=== PATIENT | female | born 1995 | race Native Hawaiian/Other Pacific Islander ===

== ENCOUNTER 2016-04-14 06:23 | Emergency (ER) | payer OTHER ==
[~2016-04-14 06:23] MED LIST: ACET50TA PO; COLA100C PO; IBUP-1114 PO; PRENTAB55 PO
[2016-04-14] MEDS ORDERED: ONDANSETRON 4MG/2ML VIAL (J2405) As Ordered ONE (06:58)
[2016-04-14 07:12] LABS: BASO # 0.2 K/mm3 (0.0-0.2); EOS # 0.1 K/mm3 (0.0-0.50); EOS % 0.7 % (0.0-3.0); LARGE UNSTAINED CELL # 0.1 K/mm3 (0.0-0.4); LARGE UNSTAINED CELL % 0.9 % (0.0-4.0); LYMPH % 13.2 % (24.0-44.0); MEAN CORPUSCULAR HEMOGLOBIN 27.4 pg (27.0-33.0); MEAN CORPUSCULAR HGB CONC 32.3 g/dl (32.0-36.5); MONO # 0.9 K/mm3 (0.0-0.8); MONO % 5.9 % (0.0-5.0); NEUTROPHILS # 11.3 K/mm3 (1.8-7.7); NEUTROPHILS % 78.3 % (36.0-66.0); PLATELET COUNT, AUTOMATED 323 k/mm3 (150-450); RED CELL DISTRIBUTION WIDTH 14.9 % (11.5-14.5); WHITE BLOOD COUNT 14.4 K/mm3 (4.0-10.0)
[2016-04-14 07:15] LABS: CONTROL LINE UCG INT CTR LINE PRESENT
[2016-04-14 07:37] LABS: ALBUMIN 3.8 GM/DL (3.2-5.2); ALBUMIN/GLOBULIN RATIO 1.09 (1.00-1.93); ALKALINE PHOSPHATASE 92 U/L (45-117); ALT/SGPT 57 U/L (12-78); ANION GAP 10 MEQ/L (8-16); AST/SGOT 41 U/L (15-37); BILIRUBIN,DIRECT < 0.1 MG/DL (0.0-0.2); BILIRUBIN,TOTAL 0.4 MG/DL (0.2-1.0); BLOOD UREA NITROGEN 13 MG/DL (7-18); CALCIUM LEVEL 8.7 MG/DL (8.5-10.1); CARBON DIOXIDE LEVEL 25 MEQ/L (21-32); CHLORIDE LEVEL 106 MEQ/L (98-107); CREATININE FOR GFR 0.71 MG/DL (0.55-1.02); GLUCOSE, FASTING 97 MG/DL (70-105); POTASSIUM SERUM 3.9 MEQ/L (3.5-5.1); SODIUM LEVEL 141 MEQ/L (136-145); TOTAL PROTEIN 7.3 GM/DL (6.4-8.2)
--- NOTE | 2016-04-14 08:39 | REP ---
Right upper quadrant sonography: History: Biliary colic. Comparison study: No comparison study. Findings: Scanning through the right upper quadrant of the abdomen demonstrates a normal sized, thin-walled gallbladder without evidence of stone or polyp. Common bile duct is normal measuring 0.3 cm in greatest diameter. No focal liver lesion is seen. Liver size is normal. No pancreatic abnormality is observed. The pancreas is partially obscured by abdominal gas. No right renal abnormality is seen. There is no evidence of ascites. The right kidney measures 10.3 x 5.5 x 4.1 cm. Impression: Negative right upper quadrant sonography. Signed by Jatinder Harding MD 04/14/2016 08:31 A
--- NOTE | 2016-04-14 09:22 | EDDOCDS ---
Physician Documentation [facility] Name: Paulette Mendoza Age: 20 yrs Sex: Female : 1995 Arrival Date: 04/14/2016 Time: 06:23 Bed 5 Private MD: Disposition: 04/14 09:03 Critical Care: Critical care not applicable. pc Disposition: 04/14/16 09:04 Discharged to Home/Self Care. Impression: Other viral enteritis, Nausea and vomiting. - Condition is Stable. - Discharge Instructions: Nausea and Vomiting, Viral Gastroenteritis. - Prescriptions for ZOFRAN ODT 4 mg - dissolve 1 tablet by ORAL route 4 times per day As needed do not chew, do not swallow whole; 10 tablet. - Medication Reconciliation, Local Pharmacy Hours form. - Follow up: Bobbi Masterson, [facility]; When: Call to arrange an appointment; Reason: Continuance of care. - Problem is new. - Symptoms have improved. HPI: 07:54 This 20 yrs old Unknown Female presents to ER via Walkin/Carried/Asstd with complaints pc of Abdominal Pain, Vomiting. 07:54 The history is obtained from the patient. The patient presents with abdominal pain, in pc the epigastric area. The symptoms began suddenly last night. She awoke with sudden nausea and vomiting at midnight. She is no longer vomiting and her nausea has nearly resolved. She has mild epigastric discomfort. She has not had any diarrhea, fevers or chills, Resp or symptoms. Her LNMP was 4 weeks CARE PROGRAM RESIDENT, she is on OCPs. At its worst, the symptoms were a 10 out of 10. In the emergency department, the symptoms are a 2 out of 10. The pain is described as "pain". The is primarily located epigastric area. It does not radiate. The patient has not experienced similar symptoms in the past. The patient has not recently seen a physician. Historical: - Allergies: No known drug Allergies; - Home Meds: 1. control daily 2. Vitamin Oral tab 1 tab once daily - PMHx: none; - PSHx: Appendectomy; - The history from nurses notes was reviewed: and I agree with what is documented. - Social history: Smoking status: Patient states was never smoker of tobacco. No barriers to communication noted, The patient speaks fluent Telugu. - Family history: No immediate family members are acutely ill. - : The pt / caregiver states he / she is not on anticoagulants. Home medication list is obtained from the patient. - Hospitalizations: : No recent hospitalization is reported. - Exposure Risk Screening:: None identified. - Immunization history:: All immunizations up-to-date. - Social history:: the patient is a non-smoker, the patient does not drink alcohol. 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 The constitutional, cardiovascular, pc respiratory and neurological components are also addressed in the HPI. Exam: 07:54 General Appearance: alert, no acute distress. pc 07:54 ENT: ear, nose and throat normal, pharynx normal. 07:54 Neck: The exam reveals no acute abnormalities. ROM is normal and painless. No nuchal rigidity is noted.. 07:54 Respiratory: no respiratory distress, normal breath sounds. 07:54 Cardiovascular: regular pulse rate, regular heart rhythm, normal heart sounds, equal and full pulses bilaterally. 07:54 Abdomen: soft, no organomegaly, normal bowel sounds, no masses appreciated, no hernias palpated with/without gravity or Valsalva mild tenderness in the epigastric area and right upper quadrant, without rebound, voluntary guarding is not appreciated, involuntary guarding is elicited in the right upper quadrant. 07:54 Back: normal inspection. 07:54 Skin: skin color is normal, warm, dry. 07:54 Extremities: The extremities have a grossly normal appearance, are non-tender, without acute ROM abnormalities. 07:54 Neuro: oriented x 3, cranial nerves normal as tested, no motor deficits, no sensory deficits. 07:54 Psych: mood is normal. Vital Signs: 06:32 Weight 67.13 kg / 148 lbs; Height 4 ft. 11 in. (149.86 cm); Pain 5/10; mlc 06:32 BP 110 / 71; Pulse 112; Resp 18; Temp 96.8(O); Pulse Ox 96% on R/A; mlc 07:50 BP 97 / 69 (auto/); ead 07:52 Pulse 82 MON; Resp 16; Pulse Ox 98% ; ead 08:20 BP 102 / 68 (auto/); ead 08:21 Pulse 82 MON; Pulse Ox 96% on R/A; ead 08:35 BP 107 / 67 (auto/); ead 08:35 Pulse 84 MON; Pulse Ox 99% ; ead 08:50 BP 103 / 71 (auto/); ead 08:50 Pulse 84 MON; Pulse Ox 98% ; ead 09:19 BP 104 / 66; Pulse 63; Resp 16; Temp 96.5(T); Pulse Ox 99% on R/A; Pain 0/10; ead 06:32 Body Mass Index 29.89 (67.13 kg, 149.86 cm) mlc MDM: 06:38 IV Saline Lock ordered. fg 06:38 Undress patient appropriately for examination ordered. fg 06:38 Ondansetron 4 mg IVP once ordered. fg 06:39 Basic Metabolic Profile Ordered. EDMS 06:39 CBC with Diff Ordered. EDMS 06:39 Lipase Ordered. EDMS 06:39 Liver Profile Ordered. EDMS 06:39 Urinalysis Ordered. EDMS 06:39 Urine Test-In Lab Ordered. EDMS 06:39 Urine Culture Ordered. EDMS 06:39 NOTHING BY MOUTH+DIET ordered. EDMS 07:21 CBC with Diff Reviewed. pc 07:21 Urinalysis Reviewed. pc 07:21 Urine Test-In Lab Reviewed. pc 07:40 Liver Profile Reviewed. pc 07:40 Basic Metabolic Profile Reviewed. pc 07:40 Lipase Reviewed. pc 07:43 Gallbladder US Ordered. EDMS 07:54 Differential diagnosis: cholecystitis, Gastroenteritis. Plan: labs, imaging, meds. pc 09:03 Data reviewed: old medical records, vital signs, nurses notes, lab test results, all radiology studies and available results. Test interpretation: LAB - all labs as ordered have been reviewed, interpreted and considered in the overall management of the clinical presentation; Ultrasound - interpreted by Radiologist, Gallbladder Normal. The patient has been re-examined and re-evaluated. The patient's symptoms have markedly improved after treatment. Disposition: The historical points, examination findings, and any diagnostic results supporting the provided diagnosis, were discussed with the patient or legal guardian. The need for outpatient follow up with the provider listed on their discharge instructions was discussed. They were encouraged to return to [facility], or the nearest ED, if symptoms worsen/persist, or for any other questions/concerns. Administered Medications: 07:01 Drug: Ondansetron 4 mg [ondansetron HCl 2 mg/mL intravenous solution (2 mL)] Route: ko2 IVP; Site: left hand; Signatures: Dispatcher [employer] Donovan Theodore MD MD pc Dunaway, EmilyRN RN Krista Deal RN RN mlc Gill, Frances, MD MD fg Ogden, Kari RN ko2 PAUL
--- NOTE | 2016-04-14 09:22 | EDDOCDS ---
Nurse's Notes [facility] Name: Paulette Mendoza Age: 20 yrs Sex: Female : 1995 Arrival Date: 04/14/2016 Time: 06:23 Bed 5 Private MD: Diagnosis: Other viral enteritis;Nausea and vomiting Presentation: 04/14 06:30 Presenting complaint: Patient states: pt states she woke up at approx 04:00 and had mlc epigastric pain. pt reports vomiting "yellow stuff". pt states she then "chugged a bunch of water" and then vomited again. Risk factors: the patient reports no vaginal bleeding. Adult Sepsis Screening: The patient does not have new or worsening altered mentation. Patient's respiratory rate is less than 22. Systolic blood pressure is greater than 100. Patient has a qSOFA score of 0- Negative Sepsis Screen. Suicide/Homicide risk assessment- the patient denies having any suicidal and/or homicidal ideations and does not present with any other emotional, behavioral or mental health complaints. Status: The patient is a dependent. Transition of care: patient was not received from another setting of care. 06:30 Acuity: MEAGAN Level 3 mlc 06:30 Method Of Arrival: Walkin/Carried/Asstd mlc Triage Assessment: 06:32 General: Appears in no apparent distress, comfortable, Behavior is cooperative. Pain: mlc Location: epigastric area Pain currently is 5 out of 10 on a pain scale. Pt Declines HIV testing. The patient is triaged at the bedside. See Assessment in Nurses Notes section of ED record. Neurological: Level of Consciousness is awake, alert, Oriented to person, place, time. Respiratory: Airway is patent Respiratory effort is even, unlabored, Respiratory pattern is regular. GI: Reports nausea, vomiting. Derm: Skin is pink, warm & dry. 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 control daily 2. Vitamin Oral tab 1 tab once daily - PMHx: none; - PSHx: Appendectomy; - The history from nurses notes was reviewed: and I agree with what is documented. - Social history: Smoking status: Patient states was never smoker of tobacco. No barriers to communication noted, The patient speaks fluent Urdu. - Family history: No immediate family members are acutely ill. - : The pt / caregiver states he / she is not on anticoagulants. Home medication list is obtained from the patient. - Hospitalizations: : No recent hospitalization is reported. - Exposure Risk Screening:: None identified. - Immunization history:: All immunizations up-to-date. - Social history:: the patient is a non-smoker, the patient does not drink alcohol. Screenin:36 Screening information is obtained from the patient. Fall risk: No risks identified. mlc Assistance ADL's: requires no assistance with activities of daily living. Abuse/DV Screen: The patient / caregiver reports he/she is: not in a situation that causes fear, pain or injury. Nutritional screening: No deficits noted. Advance Directives: Currently, there is no health care proxy. home support is adequate. Assessment: 06:40 General: Appears in no apparent distress, comfortable, Behavior is cooperative. ko2 Neurological: Level of Consciousness is awake, alert. Respiratory: Airway is patent Respiratory effort is even, unlabored. GI: Abdomen is non- distended Bowel sounds present X 4 quads. Abd is soft and non tender X 4 quads. Derm: Skin is pink, warm & dry. 07:45 General: Appears in no apparent distress, comfortable, Behavior is cooperative. ead Neurological: Level of Consciousness is awake, alert, Oriented to person, place, time. Respiratory: Airway is patent Respiratory effort is even, unlabored. GI: Denies nausea, vomiting, pain. Derm: Skin is pink, warm & dry. 09:03 General: Appears in no apparent distress, comfortable, Behavior is appropriate for age, ead cooperative. Pain: Denies pain. Neurological: No deficits noted. GI: Denies nausea, vomiting. Derm: Skin is pink, warm & dry. Vital Signs: 06:32 Weight 67.13 kg; Height 4 ft. 11 in. (149.86 cm); Pain 5/10; mlc 06:32 BP 110 / 71; Pulse 112; Resp 18; Temp 96.8(O); Pulse Ox 96% on R/A; mlc 07:50 BP 97 / 69 (auto/); ead 07:52 Pulse 82 MON; Resp 16; Pulse Ox 98% ; ead 08:20 BP 102 / 68 (auto/); ead 08:21 Pulse 82 MON; Pulse Ox 96% on R/A; ead 08:35 BP 107 / 67 (auto/); ead 08:35 Pulse 84 MON; Pulse Ox 99% ; ead 08:50 BP 103 / 71 (auto/); ead 08:50 Pulse 84 MON; Pulse Ox 98% ; ead 09:19 BP 104 / 66; Pulse 63; Resp 16; Temp 96.5(T); Pulse Ox 99% on R/A; Pain 0/10; ead 06:32 Body Mass Index 29.89 (67.13 kg, 149.86 cm) [facility]als: 06:32 Log In Time: April 14, 2016 at 06:24. [facility] Course: 06:24 Patient visited by Blossom Guerra Reg. hs2 06:24 Patient moved to Waiting hs2 06:31 Triage Initiated mlc 06:37 Dixie Reynolds,RN is Primary Nurse. mlc 06:37 Patient moved to 5 mlc 07:01 Basic Metabolic Profile Sent. ko2 07:01 CBC with Diff Sent. ko2 07:01 Lipase Sent. ko2 07:01 Liver Profile Sent. ko2 07:01 Urinalysis Sent. ko2 07:01 Urine Test-In Lab Sent. ko2 07:01 Urine Culture Sent. ko2 07:04 Inserted saline lock: 20 gauge in left hand and blood collected. The patient tolerated ko2 the procedure well. 07:06 Patient visited by Dixie Reynolds,LUI. ko2 07:08 Donovan Mendez MD is Attending Physician. pc 07:08 The patient / caregiver is instructed regarding the plan of care and ED course. ko2 07:21 Patient visited by Donovan Mendez MD. pc 07:54 Vanda Ortiz,RN is Primary Nurse. ead 07:57 Patient visited by Vanda Ortiz,LUI. ead 07:59 Patient moved to Ultrasound eg2 08:15 Patient moved to 5 eg2 09:01 Gallbladder US Returned. EDMS 09:03 Patient visited by Vanda Ortiz,LUI. ead 09[facility] pc 09:18 Discontinued lock intact, bleeding controlled, pressure dressing applied, No ead redness/swelling at site. No procedures done that require assistance. Administered Medications: 07:01 Drug: Ondansetron 4 mg [ondansetron HCl 2 mg/mL intravenous solution (2 mL)] Route: ko2 IVP; Site: left hand; Order Results: Lab Order: Basic Metabolic Profile; SPEC04/14/16 06:55 Test: GLUCOSE, FASTING; Value: 97; Range: 70-105; Units: MG/DL; Status: F Test: BLOOD UREA NITROGEN; Value: 13; Range: 7-18; Units: MG/DL; Status: F Test: CREATININE FOR GFR; Value: 0.71; Range: 0.55-1.02; Units: MG/DL; Status: F Test: SODIUM LEVEL; Value: 141; Range: 136-145; Units: MEQ/L; Status: F Test: POTASSIUM SERUM; Value: 3.9; Range: 3.5-5.1; Units: MEQ/L; Status: F Test: CHLORIDE LEVEL; Value: 106; Range: 98-107; Units: MEQ/L; Status: F Test: CARBON DIOXIDE LEVEL; Value: 25; Range: 21-32; Units: MEQ/L; Status: F Test: ANION GAP; Value: 10; Range: 8-16; Units: MEQ/L; Status: F Test: CALCIUM LEVEL; Value: 8.7; Range: 8.5-10.1; Units: MG/DL; Status: F Lab Order: CBC with Diff; SPEC04/14/16 06:55 Test: WHITE BLOOD COUNT; Value: 14.4; Range: 4.0-10.0; Abnormal: Above high normal; Units: K/mm3; Status: F Test: RED BLOOD COUNT; Value: 4.75; Range: 4.00-5.40; Units: M/mm3; Status: F Test: HEMOGLOBIN; Value: 13.0; Range: 12.0-16.0; Units: g/dl; Status: F Test: HEMATOCRIT; Value: 40.3; Range: 36.0-47.0; Units: %; Status: F Test: MEAN CORPUSCULAR VOLUME; Value: 85.0; Range: 80.0-96.0; Units: fl; Status: F Test: MEAN CORPUSCULAR HEMOGLOBIN; Value: 27.4; Range: 27.0-33.0; Units: pg; Status: F Test: MEAN CORPUSCULAR HGB CONC; Value: 32.3; Range: 32.0-36.5; Units: g/dl; Status: F Test: RED CELL DISTRIBUTION WIDTH; Value: 14.9; Range: 11.5-14.5; Abnormal: Above high normal; Units: %; Status: F Test: PLATELET COUNT, AUTOMATED; Value: 323; Range: 150-450; Units: k/mm3; Status: F Test: NEUTROPHILS %; Value: 78.3; Range: 36.0-66.0; Abnormal: Above high normal; Units: %; Status: F Test: LYMPH %; Value: 13.2; Range: 24.0-44.0; Abnormal: Below low normal; Units: %; Status: F Test: MONO %; Value: 5.9; Range: 0.0-5.0; Abnormal: Above high normal; Units: %; Status: F Test: EOS %; Value: 0.7; Range: 0.0-3.0; Units: %; Status: F Test: BASO %; Value: 1.0; Range: 0.0-1.0; Units: %; Status: F Test: LARGE UNSTAINED CELL %; Value: 0.9; Range: 0.0-4.0; Units: %; Status: F Test: NEUTROPHILS #; Value: 11.3; Range: 1.8-7.7; Abnormal: Above high normal; Units: K/mm3; Status: F Test: LYMPH #; Value: 2.0; Range: 1.5-6.5; Units: K/mm3; Status: F Test: MONO #; Value: 0.9; Range: 0.0-0.8; Abnormal: Above high normal; Units: K/mm3; Status: F Test: EOS #; Value: 0.1; Range: 0.0-0.50; Units: K/mm3; Status: F Test: BASO #; Value: 0.2; Range: 0.0-0.2; Units: K/mm3; Status: F Test: LARGE UNSTAINED CELL #; Value: 0.1; Range: 0.0-0.4; Units: K/mm3; Status: F Lab Order: Lipase; SPEC'M 04/14/16 06:55 Test: LIPASE; Value: 170; Range: 73-393; Units: U/L; Status: F Lab Order: Liver Profile; SPEC'M 04/14/16 06:55 Test: AST/SGOT; Value: 41; Range: 15-37; Abnormal: Above high normal; Units: U/L; Status: F Test: ALT/SGPT; Value: 57; Range: 12-78; Units: U/L; Status: F Test: ALKALINE PHOSPHATASE; Value: 92; Range: 45-117; Units: U/L; Status: F Test: BILIRUBIN,TOTAL; Value: 0.4; Range: 0.2-1.0; Units: MG/DL; Status: F Test: BILIRUBIN,DIRECT; Value: < 0.1; Range: 0.0-0.2; Units: MG/DL; Status: F Test: TOTAL PROTEIN; Value: 7.3; Range: 6.4-8.2; Units: GM/DL; Status: F Test: ALBUMIN; Value: 3.8; Range: 3.2-5.2; Units: GM/DL; Status: F Test: ALBUMIN/GLOBULIN RATIO; Value: 1.09; Range: 1.00-1.93; Status: F Lab Order: Urinalysis; SPEC'M 04/14/16 06:55 Test: APPEARANCE, URINE; Value: HAZY; Range: CLEAR; Status: F Test: COLOR, URINE; Value: YELLOW; Range: YELLOW; Status: F Test: PH,URINE; Value: 6.0; Range: 5.0-9.0; Units: UNITS; Status: F Test: SPECIFIC GRAVITY URINE AUTO; Value: 1.026; Range: 1.002-1.035; Status: F Test: PROTEIN, URINE AUTO; Value: 1+; Range: NEGATIVE; Abnormal: Above high normal; Units: mg/dL; Status: F Test: GLUCOSE, URINE (UA) AUTO; Value: NEGATIVE; Range: NEGATIVE; Units: mg/dL; Status: F Test: KETONE, URINE AUTO; Value: NEGATIVE; Range: NEGATIVE; Units: mg/dL; Status: F Test: UROBILINOGEN, URINE AUTO; Value: 0.2; Range: 0.0-2.0; Units: mg/dL; Status: F Test: BILIRUBIN, URINE AUTO; Value: NEGATIVE; Range: NEGATIVE; Status: F Test: NITRITE, URINE AUTO; Value: NEGATIVE; Range: NEGATIVE; Status: F Test: LEUKOCYTE ESTERASE, URINE AUTO; Value: TRACE; Range: NEGATIVE; Abnormal: Above high normal; Status: F Test: BLOOD, URINE BLOOD; Value: 1+; Range: NEGATIVE; Abnormal: Above high normal; Status: F Test: SPERM, URINE AUTO; Range: NONE; Status: I Test: WBC, URINE AUTO; Value: 6; Range: 0-3; Abnormal: Above high normal; Units: /HPF; Status: F Test: RBC, URINE AUTO; Value: 4; Range: 0-3; Abnormal: Above high normal; Units: /HPF; Status: F Test: BACTERIA, URINE AUTO; Value: NEGATIVE; Range: NEGATIVE; Status: F Test: SQUAMOUS EPITHELIAL CELL UR AU; Value: 10; Range: 0-6; Units: /HPF; Status: F Test: MUCUS, URINE; Value: SMALL; Range: NEGATIVE; Status: F Test: HYALINE CAST, URINE AUTO; Value: 0; Range: 0-1; Units: /LPF; Status: F Lab Order: Urine Test-In Lab; SPEC'M 04/14/16 06:55 Test: URINE PREG TEST; Value: NEGATIVE; Range: NEGATIVE; Status: F Radiology Order: Gallbladder US Test: Gallbladder US REASON FOR EXAMINATION: Biliary Colic; Right upper quadrant sonography:; ; History: Biliary colic.; ; Comparison study: No comparison study.; ; Findings: Scanning through the right upper quadrant of the abdomen demonstrates a; normal sized, thin-walled gallbladder without evidence of stone or polyp. Common; bile duct is normal measuring 0.3 cm in greatest diameter. No focal liver lesion; is seen. Liver size is normal. No pancreatic abnormality is observed. The; pancreas is partially obscured by abdominal gas. No right renal abnormality is; seen. There is no evidence of ascites. The right kidney measures 10.3 x 5.5 x; 4.1 cm.; ; Impression:; ; Negative right upper quadrant sonography.; ; ; Signed by; Jatinder Harding MD 04/14/2016 08:31 A; Outcome: 09:04 Discharge ordered by Provider. 09:19 Discharge Assessment: Patient awake and alert. obeys commands, Oriented to person, ead place and time. patient administered narcotics - no. The following High Risk Discharge criteria are identified: None. Discharged to home ambulatory, with significant other. Condition: improved. Discharge instructions given to patient, Instructed on discharge instructions, Demonstrated understanding of instructions, medications, Pt was receptive of discharge instructions/ teaching. Prescriptions given X 1. Ultrasound Study completed. Property sent home with patient. 09:21 Patient left the ED. renetta Signatures: Dispatcher [employer] EDDonovan Winters MD MD pc Gunn, Erin eg2 Vanda Ortiz RN RN ead Booth, Mandy, RN RN [facility] Dixie Reynolds RN RN ko2 Blossom Guerra, Reg Reg hs2 [id number]
--- NOTE | 2016-04-16 10:22 | EDDOCDS ---
Nurse's Notes [facility] Name: Paulette Mendoza Age: 20 yrs Sex: Female : 1995 Arrival Date: 04/14/2016 Time: 06:23 Bed 5 Private MD: Diagnosis: Other viral enteritis;Nausea and vomiting Presentation: 04/14 06:30 Presenting complaint: Patient states: pt states she woke up at approx 04:00 and had mlc epigastric pain. pt reports vomiting "yellow stuff". pt states she then "chugged a bunch of water" and then vomited again. Risk factors: the patient reports no vaginal bleeding. Adult Sepsis Screening: The patient does not have new or worsening altered mentation. Patient's respiratory rate is less than 22. Systolic blood pressure is greater than 100. Patient has a qSOFA score of 0- Negative Sepsis Screen. Suicide/Homicide risk assessment- the patient denies having any suicidal and/or homicidal ideations and does not present with any other emotional, behavioral or mental health complaints. Status: The patient is a dependent. Transition of care: patient was not received from another setting of care. 06:30 Acuity: MEAGAN Level 3 mlc 06:30 Method Of Arrival: Walkin/Carried/Asstd mlc Triage Assessment: 06:32 General: Appears in no apparent distress, comfortable, Behavior is cooperative. Pain: mlc Location: epigastric area Pain currently is 5 out of 10 on a pain scale. Pt Declines HIV testing. The patient is triaged at the bedside. See Assessment in Nurses Notes section of ED record. Neurological: Level of Consciousness is awake, alert, Oriented to person, place, time. Respiratory: Airway is patent Respiratory effort is even, unlabored, Respiratory pattern is regular. GI: Reports nausea, vomiting. Derm: Skin is pink, warm & dry. 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 control daily 2. Vitamin Oral tab 1 tab once daily - PMHx: none; - PSHx: Appendectomy; - The history from nurses notes was reviewed: and I agree with what is documented. - Social history: Smoking status: Patient states was never smoker of tobacco. No barriers to communication noted, The patient speaks fluent Georgian. - Family history: No immediate family members are acutely ill. - : The pt / caregiver states he / she is not on anticoagulants. Home medication list is obtained from the patient. - Hospitalizations: : No recent hospitalization is reported. - Exposure Risk Screening:: None identified. - Immunization history:: All immunizations up-to-date. - Social history:: the patient is a non-smoker, the patient does not drink alcohol. Screenin:36 Screening information is obtained from the patient. Fall risk: No risks identified. mlc Assistance ADL's: requires no assistance with activities of daily living. Abuse/DV Screen: The patient / caregiver reports he/she is: not in a situation that causes fear, pain or injury. Nutritional screening: No deficits noted. Advance Directives: Currently, there is no health care proxy. home support is adequate. Assessment: 06:40 General: Appears in no apparent distress, comfortable, Behavior is cooperative. ko2 Neurological: Level of Consciousness is awake, alert. Respiratory: Airway is patent Respiratory effort is even, unlabored. GI: Abdomen is non- distended Bowel sounds present X 4 quads. Abd is soft and non tender X 4 quads. Derm: Skin is pink, warm & dry. 07:45 General: Appears in no apparent distress, comfortable, Behavior is cooperative. ead Neurological: Level of Consciousness is awake, alert, Oriented to person, place, time. Respiratory: Airway is patent Respiratory effort is even, unlabored. GI: Denies nausea, vomiting, pain. Derm: Skin is pink, warm & dry. 09:03 General: Appears in no apparent distress, comfortable, Behavior is appropriate for age, ead cooperative. Pain: Denies pain. Neurological: No deficits noted. GI: Denies nausea, vomiting. Derm: Skin is pink, warm & dry. Vital Signs: 06:32 Weight 67.13 kg; Height 4 ft. 11 in. (149.86 cm); Pain 5/10; mlc 06:32 BP 110 / 71; Pulse 112; Resp 18; Temp 96.8(O); Pulse Ox 96% on R/A; mlc 07:50 BP 97 / 69 (auto/); ead 07:52 Pulse 82 MON; Resp 16; Pulse Ox 98% ; ead 08:20 BP 102 / 68 (auto/); ead 08:21 Pulse 82 MON; Pulse Ox 96% on R/A; ead 08:35 BP 107 / 67 (auto/); ead 08:35 Pulse 84 MON; Pulse Ox 99% ; ead 08:50 BP 103 / 71 (auto/); ead 08:50 Pulse 84 MON; Pulse Ox 98% ; ead 09:19 BP 104 / 66; Pulse 63; Resp 16; Temp 96.5(T); Pulse Ox 99% on R/A; Pain 0/10; ead 06:32 Body Mass Index 29.89 (67.13 kg, 149.86 cm) [facility] Vitals: 06:32 Log In Time: April 14, 2016 at 06:24. [facility] ED Course: 06:24 Patient visited by Blossom Guerra, Devin. hs2 06:24 Patient moved to Waiting hs2 06:31 Triage Initiated mlc 06:37 Dixie Reynolds,RN is Primary Nurse. mlc 06:37 Patient moved to 5 mlc 07:01 Basic Metabolic Profile Sent. ko2 07:01 CBC with Diff Sent. ko2 07:01 Lipase Sent. ko2 07:01 Liver Profile Sent. ko2 07:01 Urinalysis Sent. ko2 07:01 Urine Test-In Lab Sent. ko2 07:01 Urine Culture Sent. ko2 07:04 Inserted saline lock: 20 gauge in left hand and blood collected. The patient tolerated ko2 the procedure well. 07:06 Patient visited by Dixie Reynolds,LUI. ko2 07:08 Donovan Mendez MD is Attending Physician. pc 07:08 The patient / caregiver is instructed regarding the plan of care and ED course. ko2 07:21 Patient visited by Donovan Mendez MD. pc 07:54 Vanda Ortiz,RN is Primary Nurse. ead 07:57 Patient visited by Vanda Ortiz,LUI. ead 07:59 Patient moved to Ultrasound eg2 08:15 Patient moved to 5 eg2 09:01 Gallbladder US Returned. EDMS 09:03 Patient visited by Vanda Ortiz,LUI. ead 09:04 [facility]. pc 09:18 Discontinued lock intact, bleeding controlled, pressure dressing applied, No ead redness/swelling at site. No procedures done that require assistance. 10:33 Patient name changed from Leynna\\S\\\\S\\Mendoza\\S\\ to Leynna\\S\\ \\S\\Mendzoa. EDWV 10:35 [facility] Payment Agreement was scanned into [employer] and attached to record. lg Administered Medications: 07:01 Drug: Ondansetron 4 mg [ondansetron HCl 2 mg/mL intravenous solution (2 mL)] Route: ko2 IVP; Site: left hand; Order Results: Lab Order: Basic Metabolic Profile; SPEC'M 04/14/16 06:55 Test: GLUCOSE, FASTING; Value: 97; Range: 70-105; Units: MG/DL; Status: F Test: BLOOD UREA NITROGEN; Value: 13; Range: 7-18; Units: MG/DL; Status: F Test: CREATININE FOR GFR; Value: 0.71; Range: 0.55-1.02; Units: MG/DL; Status: F Test: SODIUM LEVEL; Value: 141; Range: 136-145; Units: MEQ/L; Status: F Test: POTASSIUM SERUM; Value: 3.9; Range: 3.5-5.1; Units: MEQ/L; Status: F Test: CHLORIDE LEVEL; Value: 106; Range: 98-107; Units: MEQ/L; Status: F Test: CARBON DIOXIDE LEVEL; Value: 25; Range: 21-32; Units: MEQ/L; Status: F Test: ANION GAP; Value: 10; Range: 8-16; Units: MEQ/L; Status: F Test: CALCIUM LEVEL; Value: 8.7; Range: 8.5-10.1; Units: MG/DL; Status: F Lab Order: CBC with Diff; SPEC'M 04/14/16 06:55 Test: WHITE BLOOD COUNT; Value: 14.4; Range: 4.0-10.0; Abnormal: Above high normal; Units: K/mm3; Status: F Test: RED BLOOD COUNT; Value: 4.75; Range: 4.00-5.40; Units: M/mm3; Status: F Test: HEMOGLOBIN; Value: 13.0; Range: 12.0-16.0; Units: g/dl; Status: F Test: HEMATOCRIT; Value: 40.3; Range: 36.0-47.0; Units: %; Status: F Test: MEAN CORPUSCULAR VOLUME; Value: 85.0; Range: 80.0-96.0; Units: fl; Status: F Test: MEAN CORPUSCULAR HEMOGLOBIN; Value: 27.4; Range: 27.0-33.0; Units: pg; Status: F Test: MEAN CORPUSCULAR HGB CONC; Value: 32.3; Range: 32.0-36.5; Units: g/dl; Status: F Test: RED CELL DISTRIBUTION WIDTH; Value: 14.9; Range: 11.5-14.5; Abnormal: Above high normal; Units: %; Status: F Test: PLATELET COUNT, AUTOMATED; Value: 323; Range: 150-450; Units: k/mm3; Status: F Test: NEUTROPHILS %; Value: 78.3; Range: 36.0-66.0; Abnormal: Above high normal; Units: %; Status: F Test: LYMPH %; Value: 13.2; Range: 24.0-44.0; Abnormal: Below low normal; Units: %; Status: F Test: MONO %; Value: 5.9; Range: 0.0-5.0; Abnormal: Above high normal; Units: %; Status: F Test: EOS %; Value: 0.7; Range: 0.0-3.0; Units: %; Status: F Test: BASO %; Value: 1.0; Range: 0.0-1.0; Units: %; Status: F Test: LARGE UNSTAINED CELL %; Value: 0.9; Range: 0.0-4.0; Units: %; Status: F Test: NEUTROPHILS #; Value: 11.3; Range: 1.8-7.7; Abnormal: Above high normal; Units: K/mm3; Status: F Test: LYMPH #; Value: 2.0; Range: 1.5-6.5; Units: K/mm3; Status: F Test: MONO #; Value: 0.9; Range: 0.0-0.8; Abnormal: Above high normal; Units: K/mm3; Status: F Test: EOS #; Value: 0.1; Range: 0.0-0.50; Units: K/mm3; Status: F Test: BASO #; Value: 0.2; Range: 0.0-0.2; Units: K/mm3; Status: F Test: LARGE UNSTAINED CELL #; Value: 0.1; Range: 0.0-0.4; Units: K/mm3; Status: F Lab Order: Lipase; SPEC'M 04/14/16 06:55 Test: LIPASE; Value: 170; Range: 73-393; Units: U/L; Status: F Lab Order: Liver Profile; SPEC' 04/14/16 06:55 Test: AST/SGOT; Value: 41; Range: 15-37; Abnormal: Above high normal; Units: U/L; Status: F Test: ALT/SGPT; Value: 57; Range: 12-78; Units: U/L; Status: F Test: ALKALINE PHOSPHATASE; Value: 92; Range: 45-117; Units: U/L; Status: F Test: BILIRUBIN,TOTAL; Value: 0.4; Range: 0.2-1.0; Units: MG/DL; Status: F Test: BILIRUBIN,DIRECT; Value: < 0.1; Range: 0.0-0.2; Units: MG/DL; Status: F Test: TOTAL PROTEIN; Value: 7.3; Range: 6.4-8.2; Units: GM/DL; Status: F Test: ALBUMIN; Value: 3.8; Range: 3.2-5.2; Units: GM/DL; Status: F Test: ALBUMIN/GLOBULIN RATIO; Value: 1.09; Range: 1.00-1.93; Status: F Lab Order: Urinalysis; SPEC' 04/14/16 06:55 Test: APPEARANCE, URINE; Value: HAZY; Range: CLEAR; Status: F Test: COLOR, URINE; Value: YELLOW; Range: YELLOW; Status: F Test: PH,URINE; Value: 6.0; Range: 5.0-9.0; Units: UNITS; Status: F Test: SPECIFIC GRAVITY URINE AUTO; Value: 1.026; Range: 1.002-1.035; Status: F Test: PROTEIN, URINE AUTO; Value: 1+; Range: NEGATIVE; Abnormal: Above high normal; Units: mg/dL; Status: F Test: GLUCOSE, URINE (UA) AUTO; Value: NEGATIVE; Range: NEGATIVE; Units: mg/dL; Status: F Test: KETONE, URINE AUTO; Value: NEGATIVE; Range: NEGATIVE; Units: mg/dL; Status: F Test: UROBILINOGEN, URINE AUTO; Value: 0.2; Range: 0.0-2.0; Units: mg/dL; Status: F Test: BILIRUBIN, URINE AUTO; Value: NEGATIVE; Range: NEGATIVE; Status: F Test: NITRITE, URINE AUTO; Value: NEGATIVE; Range: NEGATIVE; Status: F Test: LEUKOCYTE ESTERASE, URINE AUTO; Value: TRACE; Range: NEGATIVE; Abnormal: Above high normal; Status: F Test: BLOOD, URINE BLOOD; Value: 1+; Range: NEGATIVE; Abnormal: Above high normal; Status: F Test: SPERM, URINE AUTO; Range: NONE; Status: I Test: WBC, URINE AUTO; Value: 6; Range: 0-3; Abnormal: Above high normal; Units: /HPF; Status: F Test: RBC, URINE AUTO; Value: 4; Range: 0-3; Abnormal: Above high normal; Units: /HPF; Status: F Test: BACTERIA, URINE AUTO; Value: NEGATIVE; Range: NEGATIVE; Status: F Test: SQUAMOUS EPITHELIAL CELL UR AU; Value: 10; Range: 0-6; Units: /HPF; Status: F Test: MUCUS, URINE; Value: SMALL; Range: NEGATIVE; Status: F Test: HYALINE CAST, URINE AUTO; Value: 0; Range: 0-1; Units: /LPF; Status: F Lab Order: Urine Test-In Lab; SPEC'M 04/14/16 06:55 Test: URINE PREG TEST; Value: NEGATIVE; Range: NEGATIVE; Status: F Lab Order: Urine Culture; SPEC'M 04/14/16 06:55 Test: URINE CULTURE; Value: <EXTERNAL COMMENT eCWMed> FULL REPORT IN LAB NOTES (eCW and Medent).; Status: F Test: URINE CULTURE; Value: URINE CULTURE RESULT SPECIMEN APPEARS CONTAMINATED; Status: F Radiology Order: Gallbladder US Test: Gallbladder US REASON FOR EXAMINATION: Biliary Colic; Right upper quadrant sonography:; ; History: Biliary colic.; ; Comparison study: No comparison study.; ; Findings: Scanning through the right upper quadrant of the abdomen demonstrates a; normal sized, thin-walled gallbladder without evidence of stone or polyp. Common; bile duct is normal measuring 0.3 cm in greatest diameter. No focal liver lesion; is seen. Liver size is normal. No pancreatic abnormality is observed. The; pancreas is partially obscured by abdominal gas. No right renal abnormality is; seen. There is no evidence of ascites. The right kidney measures 10.3 x 5.5 x; 4.1 cm.; ; Impression:; ; Negative right upper quadrant sonography.; ; ; Signed by; Jatinder Harding MD 04/14/2016 08:31 A; Outcome: 09:04 Discharge ordered by Provider. 09:19 Discharge Assessment: Patient awake and alert. obeys commands, Oriented to person, ead place and time. patient administered narcotics - no. The following High Risk Discharge criteria are identified: None. Discharged to home ambulatory, with significant other. Condition: improved. Discharge instructions given to patient, Instructed on discharge instructions, Demonstrated understanding of instructions, medications, Pt was receptive of discharge instructions/ teaching. Prescriptions given X 1. Ultrasound Study completed. Property sent home with patient. 09:21 Patient left the ED. ead Signatures: Dispatcher [employer] EDMS Donovan Mendez MD MD pc Caleb Louis, Reg Reg lg Caroline Real eg2 Vanda Ortiz RN RN Krista Deal,LUI RN [facility] Dixie Reynolds RN RN ko2 Blossom Guerra, Reg Reg hs2 Chart Complete [facility]
--- NOTE | 2016-04-16 10:22 | EDDOCDS ---
Physician Documentation [facility] Name: Paulette Mendoza Age: 20 yrs Sex: Female : 1995 Arrival Date: 04/14/2016 Time: 06:23 Bed 5 Private MD: Disposition: 04/14 09:03 Critical Care: Critical care not applicable. pc Disposition: 04/14/16 09:04 Discharged to Home/Self Care. Impression: Other viral enteritis, Nausea and vomiting. - Condition is Stable. - Discharge Instructions: Nausea and Vomiting, Viral Gastroenteritis. - Prescriptions for ZOFRAN ODT 4 mg - dissolve 1 tablet by ORAL route 4 times per day As needed do not chew, do not swallow whole; 10 tablet. - Medication Reconciliation, Local Pharmacy Hours form. - Follow up: Bobbi Masterson, [facility]; When: Call to arrange an appointment; Reason: Continuance of care. - Problem is new. - Symptoms have improved. HPI: 07:54 This 20 yrs old Unknown Female presents to ER via Walkin/Carried/Asstd with complaints pc of Abdominal Pain, Vomiting. 07:54 The history is obtained from the patient. The patient presents with abdominal pain, in pc the epigastric area. The symptoms began suddenly last night. She awoke with sudden nausea and vomiting at midnight. She is no longer vomiting and her nausea has nearly resolved. She has mild epigastric discomfort. She has not had any diarrhea, fevers or chills, Resp or symptoms. Her LNMP was 4 weeks [employer]ARD [employer], she is on OCPs. At its worst, the symptoms were a 10 out of 10. In the emergency department, the symptoms are a 2 out of 10. The pain is described as "pain". The is primarily located epigastric area. It does not radiate. The patient has not experienced similar symptoms in the past. The patient has not recently seen a physician. Historical: - Allergies: No known drug Allergies; - Home Meds: 1. control daily 2. Vitamin Oral tab 1 tab once daily - PMHx: none; - PSHx: Appendectomy; - The history from nurses notes was reviewed: and I agree with what is documented. - Social history: Smoking status: Patient states was never smoker of tobacco. No barriers to communication noted, The patient speaks fluent Telugu. - Family history: No immediate family members are acutely ill. - : The pt / caregiver states he / she is not on anticoagulants. Home medication list is obtained from the patient. - Hospitalizations: : No recent hospitalization is reported. - Exposure Risk Screening:: None identified. - Immunization history:: All immunizations up-to-date. - Social history:: the patient is a non-smoker, the patient does not drink alcohol. 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 The constitutional, cardiovascular, pc respiratory and neurological components are also addressed in the HPI. Exam: 07:54 General Appearance: alert, no acute distress. pc 07:54 ENT: ear, nose and throat normal, pharynx normal. 07:54 Neck: The exam reveals no acute abnormalities. ROM is normal and painless. No nuchal rigidity is noted.. 07:54 Respiratory: no respiratory distress, normal breath sounds. 07:54 Cardiovascular: regular pulse rate, regular heart rhythm, normal heart sounds, equal and full pulses bilaterally. 07:54 Abdomen: soft, no organomegaly, normal bowel sounds, no masses appreciated, no hernias palpated with/without gravity or Valsalva mild tenderness in the epigastric area and right upper quadrant, without rebound, voluntary guarding is not appreciated, involuntary guarding is elicited in the right upper quadrant. 07:54 Back: normal inspection. 07:54 Skin: skin color is normal, warm, dry. 07:54 Extremities: The extremities have a grossly normal appearance, are non-tender, without acute ROM abnormalities. 07:54 Neuro: oriented x 3, cranial nerves normal as tested, no motor deficits, no sensory deficits. 07:54 Psych: mood is normal. Vital Signs: 06:32 Weight 67.13 kg / 148 lbs; Height 4 ft. 11 in. (149.86 cm); Pain 5/10; mlc 06:32 BP 110 / 71; Pulse 112; Resp 18; Temp 96.8(O); Pulse Ox 96% on R/A; mlc 07:50 BP 97 / 69 (auto/); ead 07:52 Pulse 82 MON; Resp 16; Pulse Ox 98% ; ead 08:20 BP 102 / 68 (auto/); ead 08:21 Pulse 82 MON; Pulse Ox 96% on R/A; ead 08:35 BP 107 / 67 (auto/); ead 08:35 Pulse 84 MON; Pulse Ox 99% ; ead 08:50 BP 103 / 71 (auto/); ead 08:50 Pulse 84 MON; Pulse Ox 98% ; ead 09:19 BP 104 / 66; Pulse 63; Resp 16; Temp 96.5(T); Pulse Ox 99% on R/A; Pain 0/10; ead 06:32 Body Mass Index 29.89 (67.13 kg, 149.86 cm) mlc MDM: 06:38 IV Saline Lock ordered. fg 06:38 Undress patient appropriately for examination ordered. fg 06:38 Ondansetron 4 mg IVP once ordered. fg 06:39 Basic Metabolic Profile Ordered. EDMS 06:39 CBC with Diff Ordered. EDMS 06:39 Lipase Ordered. EDMS 06:39 Liver Profile Ordered. EDMS 06:39 Urinalysis Ordered. EDMS 06:39 Urine Test-In Lab Ordered. EDMS 06:39 Urine Culture Ordered. EDMS 06:39 NOTHING BY MOUTH+DIET ordered. EDMS 07:21 CBC with Diff Reviewed. pc 07:21 Urinalysis Reviewed. pc 07:21 Urine Test-In Lab Reviewed. pc 07:40 Liver Profile Reviewed. pc 07:40 Basic Metabolic Profile Reviewed. pc 07:40 Lipase Reviewed. pc 07:43 Gallbladder US Ordered. EDMS 07:54 Differential diagnosis: cholecystitis, Gastroenteritis. Plan: labs, imaging, meds. pc 09:03 Data reviewed: old medical records, vital signs, nurses notes, lab test results, all radiology studies and available results. Test interpretation: LAB - all labs as ordered have been reviewed, interpreted and considered in the overall management of the clinical presentation; Ultrasound - interpreted by Radiologist, Gallbladder Normal. The patient has been re-examined and re-evaluated. The patient's symptoms have markedly improved after treatment. Disposition: The historical points, examination findings, and any diagnostic results supporting the provided diagnosis, were discussed with the patient or legal guardian. The need for outpatient follow up with the provider listed on their discharge instructions was discussed. They were encouraged to return to [facility], or the nearest ED, if symptoms worsen/persist, or for any other questions/concerns. 10:35 [facility] Payment Agreement was scanned into [employer] and attached to record. lg Administered Medications: 07:01 Drug: Ondansetron 4 mg [ondansetron HCl 2 mg/mL intravenous solution (2 mL)] Route: ko2 IVP; Site: left hand; Signatures: Dispatcher [employer] Donovan Theodore MD MD pc Ganter, LoriLee, Reg Reg lg Vanda Ortiz RN RN ead Booth, Mandy, RN RN mlc Gill, Frances, MD MD fg Ogden, Kari RN ko2 The chart was reviewed and I authenticate all verbal orders and agree with the evaluation and treatment provided.Attachments: 10:35 [facility] Payment Agreement lg Chart Complete MTDD
--- NOTE | 2016-04-16 10:22 | EDDOCDS ---
Physician Documentation [facility] Name: Paulette Mendoza Age: 20 yrs Sex: Female : 1995 Arrival Date: 04/14/2016 Time: 06:23 Bed 5 Private MD: Disposition: 04/14 09:03 Critical Care: Critical care not applicable. pc Disposition: 04/14/16 09:04 Discharged to Home/Self Care. Impression: Other viral enteritis, Nausea and vomiting. - Condition is Stable. - Discharge Instructions: Nausea and Vomiting, Viral Gastroenteritis. - Prescriptions for ZOFRAN ODT 4 mg - dissolve 1 tablet by ORAL route 4 times per day As needed do not chew, do not swallow whole; 10 tablet. - Medication Reconciliation, Local Pharmacy Hours form. - Follow up: Bobbi Masterson, [facility]; When: Call to arrange an appointment; Reason: Continuance of care. - Problem is new. - Symptoms have improved. HPI: 07:54 This 20 yrs old Unknown Female presents to ER via Walkin/Carried/Asstd with complaints pc of Abdominal Pain, Vomiting. 07:54 The history is obtained from the patient. The patient presents with abdominal pain, in pc the epigastric area. The symptoms began suddenly last night. She awoke with sudden nausea and vomiting at midnight. She is no longer vomiting and her nausea has nearly resolved. She has mild epigastric discomfort. She has not had any diarrhea, fevers or chills, Resp or symptoms. Her LNMP was 4 weeks HA[employer] CLIP[employer], she is on OCPs. At its worst, the symptoms were a 10 out of 10. In the emergency department, the symptoms are a 2 out of 10. The pain is described as "pain". The is primarily located epigastric area. It does not radiate. The patient has not experienced similar symptoms in the past. The patient has not recently seen a physician. Historical: - Allergies: No known drug Allergies; - Home Meds: 1. control daily 2. Vitamin Oral tab 1 tab once daily - PMHx: none; - PSHx: Appendectomy; - The history from nurses notes was reviewed: and I agree with what is documented. - Social history: Smoking status: Patient states was never smoker of tobacco. No barriers to communication noted, The patient speaks fluent Telugu. - Family history: No immediate family members are acutely ill. - : The pt / caregiver states he / she is not on anticoagulants. Home medication list is obtained from the patient. - Hospitalizations: : No recent hospitalization is reported. - Exposure Risk Screening:: None identified. - Immunization history:: All immunizations up-to-date. - Social history:: the patient is a non-smoker, the patient does not drink alcohol. 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 The constitutional, cardiovascular, pc respiratory and neurological components are also addressed in the HPI. Exam: 07:54 General Appearance: alert, no acute distress. pc 07:54 ENT: ear, nose and throat normal, pharynx normal. 07:54 Neck: The exam reveals no acute abnormalities. ROM is normal and painless. No nuchal rigidity is noted.. 07:54 Respiratory: no respiratory distress, normal breath sounds. 07:54 Cardiovascular: regular pulse rate, regular heart rhythm, normal heart sounds, equal and full pulses bilaterally. 07:54 Abdomen: soft, no organomegaly, normal bowel sounds, no masses appreciated, no hernias palpated with/without gravity or Valsalva mild tenderness in the epigastric area and right upper quadrant, without rebound, voluntary guarding is not appreciated, involuntary guarding is elicited in the right upper quadrant. 07:54 Back: normal inspection. 07:54 Skin: skin color is normal, warm, dry. 07:54 Extremities: The extremities have a grossly normal appearance, are non-tender, without acute ROM abnormalities. 07:54 Neuro: oriented x 3, cranial nerves normal as tested, no motor deficits, no sensory deficits. 07:54 Psych: mood is normal. Vital Signs: 06:32 Weight 67.13 kg / 148 lbs; Height 4 ft. 11 in. (149.86 cm); Pain 5/10; mlc 06:32 BP 110 / 71; Pulse 112; Resp 18; Temp 96.8(O); Pulse Ox 96% on R/A; mlc 07:50 BP 97 / 69 (auto/); ead 07:52 Pulse 82 MON; Resp 16; Pulse Ox 98% ; ead 08:20 BP 102 / 68 (auto/); ead 08:21 Pulse 82 MON; Pulse Ox 96% on R/A; ead 08:35 BP 107 / 67 (auto/); ead 08:35 Pulse 84 MON; Pulse Ox 99% ; ead 08:50 BP 103 / 71 (auto/); ead 08:50 Pulse 84 MON; Pulse Ox 98% ; ead 09:19 BP 104 / 66; Pulse 63; Resp 16; Temp 96.5(T); Pulse Ox 99% on R/A; Pain 0/10; ead 06:32 Body Mass Index 29.89 (67.13 kg, 149.86 cm) mlc MDM: 06:38 IV Saline Lock ordered. fg 06:38 Undress patient appropriately for examination ordered. fg 06:38 Ondansetron 4 mg IVP once ordered. fg 06:39 Basic Metabolic Profile Ordered. EDMS 06:39 CBC with Diff Ordered. EDMS 06:39 Lipase Ordered. EDMS 06:39 Liver Profile Ordered. EDMS 06:39 Urinalysis Ordered. EDMS 06:39 Urine Test-In Lab Ordered. EDMS 06:39 Urine Culture Ordered. EDMS 06:39 NOTHING BY MOUTH+DIET ordered. EDMS 07:21 CBC with Diff Reviewed. pc 07:21 Urinalysis Reviewed. pc 07:21 Urine Test-In Lab Reviewed. pc 07:40 Liver Profile Reviewed. pc 07:40 Basic Metabolic Profile Reviewed. pc 07:40 Lipase Reviewed. pc 07:43 Gallbladder US Ordered. EDMS 07:54 Differential diagnosis: cholecystitis, Gastroenteritis. Plan: labs, imaging, meds. pc 09:03 Data reviewed: old medical records, vital signs, nurses notes, lab test results, all radiology studies and available results. Test interpretation: LAB - all labs as ordered have been reviewed, interpreted and considered in the overall management of the clinical presentation; Ultrasound - interpreted by Radiologist, Gallbladder Normal. The patient has been re-examined and re-evaluated. The patient's symptoms have markedly improved after treatment. Disposition: The historical points, examination findings, and any diagnostic results supporting the provided diagnosis, were discussed with the patient or legal guardian. The need for outpatient follow up with the provider listed on their discharge instructions was discussed. They were encouraged to return to [facility], or the nearest ED, if symptoms worsen/persist, or for any other questions/concerns. 10:35 [facility] [place] was scanned into [id number] and attached to record. lg Administered Medications: 07:01 Drug: Ondansetron 4 mg [ondansetron HCl 2 mg/mL intravenous solution (2 mL)] Route: ko2 IVP; Site: left hand; Signatures: Dispatcher [employer] Donovan Theodore MD MD pc Ganter, LoriLee, Reg Reg lg Vanda Ortiz RN RN ead Booth, Mandy, RN RN mlc Gill, Frances, MD MD fg Ogden, Kari RN ko2 The chart was reviewed and I authenticate all verbal orders and agree with the evaluation and treatment provided.Attachments: 10:35 [facility] Payment Agreement lg Chart Complete MTDD
== END 2016-04-14 09:21 | disposition home or self-care (01) ==
LOC: M ED 06:23
DX: A08.4 Viral intestinal infection, unspecified (principal); Z79.3 Long term (current) use of hormonal contraceptives
CPT/HCPCS: 36415; 76705; 80048; 80076; 81001; 83690; 84703; 85025; 87086; 96374; 99284; J2405

== ENCOUNTER 2017-01-27 01:33 | Emergency (ER) | payer OTHER ==
[~2017-01-27] VITALS: Ht 149.9 cm; Wt 63.6 kg
[~2017-01-27 01:33] MED LIST changes: -COLA100C PO; +COLA100C5 PO; +NAPR500T PO
[2017-01-27 01:37] VITALS: BP 128/83
[2017-01-27 02:58] LABS: CONTROL LINE UCG INT CTR LINE PRESENT
[2017-01-27] MEDS ORDERED: NORCO, ANEXSIA 5/325MG TABLET (HYDROcodone/ACETAMINOPHEN) PO ONE (03:00)
[2017-01-27 03:20] LABS: RENAL EPITHELIAL CELLS 1 /HPF
== END 2017-01-27 03:22 | disposition home or self-care (01) ==
LOC: M ED 01:33
DX: N39.0 Urinary tract infection, site not specified (principal); F17.210 Nicotine dependence, cigarettes, uncomplicated

== ENCOUNTER → 2017-03-09 | Outpatient (REF) | payer OTHER | LOC: M SFHCLERA 14:29 | DX: Z20.2 Contact with and (suspected) exposure to infections with a predominantly sexual mode of transmission (principal) ==